=== PATIENT | female | born 1995 | race Caucasian/White ===

== ENCOUNTER 2020-02-18 11:00 | Inpatient (IN) | payer OTHER ==
[2020-02-18 12:25] LABS: BASO % 0.4 % (0-2.0); EOS % 1.5 % (0-4.5); HEMATOCRIT 35.2 % (32.4-45.2); HEMOGLOBIN 11.4 GM/dL (10.7-15.3); LYMPH % 43.7 % (8-40); MCH 27.5 pg (25.7-33.7); MCHC 32.3 g/dl (32.0-36.0); MEAN CELL VOLUME 85.2 fl (80-96); MEAN PLT VOLUME 10.5 fl (7.5-11.1); MONO % 6.6 % (3.8-10.2); NEUT % 47.8 % (42.8-82.8); PLATELET COUNT 185 K/MM3 (134-434); RBC 4.13 M/mm3 (3.60-5.2); RDW 15.7 % (11.6-15.6); WHITE BLOOD COUNT 6.7 K/mm3 (4.0-10.0)
[2020-02-18 12:30] LABS: INR 0.87 (0.83-1.09); PROTHROMBIN TIME (PATIENT) 10.3 SEC (9.7-13.0)
[2020-02-18 12:33] LABS: ACTIVATED PTT 28.4 SECONDS (25.2-36.5)
[2020-02-18 12:35] VITALS: BMI 28.7
[2020-02-18 12:38] LABS: BLOOD UREA NITROGEN 5.6 mg/dL (7-18); CALCIUM 7.8 mg/dL (8.5-10.1); CREATININE 0.6 mg/dL (0.55-1.3); POTASSIUM 4.1 mmol/L (3.5-5.1)
[2020-02-18] MEDS ORDERED: DINOPROSTONE 10 MG VAGINAL SUPPOSITORY VG ONE (12:48)
[2020-02-18] MEDS ORDERED: PROMETHAZINE HCL 25 MG/1 ML VIAL IVPB ONE (12:49)
[2020-02-18] MEDS ORDERED: BUTORPHANOL TARTRATE 1 MG/ML VIAL IVPUSH PRN (12:49)
--- NOTE | 2020-02-18 12:55 | HP ---
Past Medical History - Primary Care Physician PCP:: Zackery Dumont - Admission Chief Complaint: 38 weeks, IUGR History of Present Illness: 25 yo f 38weeks by sono referred by MFWilfredo Hare for induction of labor due to SGA, no interval growth , no pain , no vaginal bleeding txed for UTI, had posiitve afp for Downs, negative NIPT , History Source: Patient Limitations to Obtaining History: Language Barrier - Past Medical History ...: 1 ...Para: 0 ...LMP: 05/15/19 ... Weeks Gestation by Dates: 39.5 ...EDC by Dates: 02/20/20 ...EDC by Sono: 02/28/20 - Past Surgical History Past Surgical History: Yes: None Hx Myomectomy: No Hx Transabdominal Cerclage: No - Smoking History Smoking history: Never smoked Have you smoked in the past 12 months: No - Alcohol/Substance Use Hx Alcohol Use: No - Social History History of Recent Travel: No Home Medications - Allergies Allergies/Adverse Reactions: Allergies Allergy/AdvReac Type Severity Reaction Status Date / Time No Known Allergies Allergy Verified 02/18/20 12:11 - Home Medications Home Medications: Ambulatory Orders Nitrofurantoin Monohyd/M-Cryst [Macrobid -] 100 mg PO BID #14 capsule 01/15/20 Vit 93/Iron Fum/Folic [ Formula Tablet] 1 tab PO DAILY 02/18/20 Review of Systems - Review of Systems Constitutional: reports: No Symptoms Eyes: reports: No Symptoms HENT: reports: No Symptoms Neck: reports: No Symptoms Cardiovascular: reports: No Symptoms Respiratory: reports: No Symptoms Gastrointestinal: reports: No Symptoms Genitourinary: reports: No Symptoms Breasts: reports: No Symptoms Reported Musculoskeletal: reports: No Symptoms Integumentary: reports: No Symptoms Neurological: reports: No Symptoms Endocrine: reports: No Symptoms Hematology/Lymphatic: reports: No Symptoms Psychiatric: reports: No Symptoms Physical Exam - Maternity Vital Signs: Vital Signs Temperature 97.9 F 02/18/20 11:10 Pulse Rate 64 02/18/20 12:00 Respiratory Rate 18 02/18/20 12:00 Blood Pressure 123/86 02/18/20 12:00 O2 Sat by Pulse Oximetry (%) Constitutional: Yes: Well Nourished, No Distress, Calm Eyes: Yes: WNL, Conjunctiva Clear, EOM Intact HENT: Yes: WNL, Atraumatic, Normocephalic Neck: Yes: WNL, Supple, Trachea Midline Cardiovascular: Yes: WNL, Regular Rate and Rhythm Breast(s): Yes: WNL - Abdominal Exam/OB Fundal Height: 36 Number of Fetuses: Single Presentation: Vertex Contractions: No Intensity: Unaware Monitor Mode: External Heart Rate Location: [facility] Category: I Accelerations: Non-Uniform Decelerations: None - Vaginal Exam/OB Vaginal Bleeding: No Speculum Exam: No Dilatation (cm): closed Effacement (%): 0 Amniotic Membrane Status: Intact Presentation: Vertex/Position Station: -4 - Physical Exam Musculoskeletal: Yes: WNL Extremities: Yes: WNL Edema: Yes Edema: LLE: Trace, RLE: Trace Deep Tendon Reflex Grade: Normal +2 Psychiatric: Yes: WNL - Labs Lab Results: CBC, BMP 02/18/20 11:25 02/18/20 11:25 Hemorrhage Risk Assessment - Risk Factors Medium Risk Factors: Yes: None High Risk Factors: Yes: None Risk Score: 1 Risk Level: Medium Risk Problem List - Problems (1) with 38 completed weeks gestation Code(s): Z3A.38 - 38 WEEKS GESTATION OF (2) IUGR (intrauterine growth restriction) affecting care of mother Code(s): O36.5990 - MATERN CARE FOR OTH OR SUSP POOR FETL GRTH, UNSP TRI, UNSP Qualifiers: Fetus number: single or unspecified fetus Trimester: third trimester Qualified Code(s): O36.5930 - Maternal care for other known or suspected poor growth, third trimester, not applicable or unspecified Assessment/Plan admit for cervidil induction FHM revaluate
--- NOTE | 2020-02-18 12:57 | PN ---
Progress Note (short form) - Note Progress Note: cervidil inserted at 12 pm . fhr cat 1, no contraction,cx CLP Problem List - Problems (1) with 38 completed weeks gestation Code(s): Z3A.38 - 38 WEEKS GESTATION OF (2) IUGR (intrauterine growth restriction) affecting care of mother Code(s): O36.5990 - MATERN CARE FOR OTH OR SUSP POOR FETL GRTH, UNSP TRI, UNSP Qualifiers: Fetus number: single or unspecified fetus Trimester: third trimester Qualified Code(s): O36.5930 - Maternal care for other known or suspected poor growth, third trimester, not applicable or unspecified
[2020-02-18 17:33] LABS: URIC ACID 7.4 mg/dL (2.6-7.2)
[2020-02-18 18:08] LABS: RETICULOCYTES 1.89 % (0.5-1.5)
[2020-02-18] MEDS: NITROFURANTOIN MACROCRYSTAL 50 MG CAPSULE (FP) PO SCH (20:01)
[2020-02-18 20:10] LABS: EPI CELLS 9 /uL (0-25.1); HYALINE CASTS 0 /uL (0-3.1); URINE APPEARANCE CLEAR; URINE BACTERIA 18 /uL (0-1359); URINE BILIRUBIN NEGATIVE (NEGATIVE); URINE COLOR YELLOW; URINE GLUCOSE (UA) NEGATIVE (NEGATIVE); URINE KETONE NEGATIVE (NEGATIVE); URINE LEUK ESTERASE TRACE (NEGATIVE); URINE NITRITE NEGATIVE (NEGATIVE); URINE PROTEIN 2+ (NEGATIVE); URINE RBC 6 /uL (0-23.9); URINE UROBILINOGEN 0.2 mg/dL (0.2-1.0); URINE WBC 31 /uL (0-25.8)
[2020-02-18] MEDS ORDERED: DEXTROSE 5%-LACTATED RINGERS 1,000 ML IV ONE (21:20)
--- NOTE | 2020-02-18 21:57 | PN ---
Ante-Partal Exam - Subjective Subjective: Pt with variables with cervidil Vital Signs: Vital Signs Temperature 98.1 F 02/18/20 20:00 Pulse Rate 81 02/18/20 21:00 Respiratory Rate 18 02/18/20 21:00 Blood Pressure 148/96 02/18/20 21:00 O2 Sat by Pulse Oximetry (%) - Contractions Contractions: Yes Monitor Mode: External - Exam during Labor Variability: Moderate Category: II Exam: Vaginal Dilatation (cm): 3 cm Amniotic Membrane Status: Intact Presentation: Vertex - Assessment/Plan Assessment/Plan: Cat 2 varible decels with moderate variability IUGR Plan DC cervidil O2 IVhydration reevaluate cervix after hydration
[2020-02-18] MEDS ORDERED: CITRIC ACID/SODIUM CITRATE 30 ML UNIT-DOSE CUP PO ONE (22:43)
[2020-02-18] MEDS: DEXTROSE 5%-LACTATED RINGERS 1,000 ML IV SCH (23:00)
[2020-02-18] MEDS ORDERED: ONDANSETRON 4 MG/2 ML VIAL IVPUSH PRN (23:09)
[2020-02-18] MEDS ORDERED: morphine SULFATE/PF 0.5 MG/ML (2cc Syringe - QUVA) ONE (23:15)
[2020-02-18] MEDS ORDERED: ceFAZolin SODIUM 1 GM VIAL ONE (23:23)
[2020-02-18] MEDS ORDERED: KETOROLAC TROMETHAMINE 30 MG/1 ML VIAL ONE (23:23)
[2020-02-18] MEDS ORDERED: DEXAMETHASONE SOD PHOSPHATE 4 MG/1 ML VIAL ONE (23:23)
[2020-02-19] MEDS: NITROFURANTOIN MACROCRYSTAL 50 MG CAPSULE (FP) PO SCH
[2020-02-19] MEDS ORDERED: METHYLERGONOVINE MALEATE 0.2 MG/1 ML AMP IM PRN (00:13)
[2020-02-19] MEDS ORDERED: diphenhydrAMINE HCL 25 MG CAPSULE (FP) PO PRN (00:13)
[2020-02-19] MEDS ORDERED: BENZOCAINE 20% 57 GM BOTTLE TP PRN (00:13)
[2020-02-19] MEDS ORDERED: WITCH HAZEL 50% (TUCKS) 40 PAD/JAR PAD TP PRN (00:13)
[2020-02-19] MEDS ORDERED: BENZOCAINE 28 GM HEMORRHOIDAL OINTMENT PR PRN (00:13)
[2020-02-19] MEDS ORDERED: IBUPROFEN 800 MG/8 ML IJ IVPB PRN (00:13)
[2020-02-19] MEDS ORDERED: oxyCODONE HCL 5 MG TABLET PO PRN (00:13)
[2020-02-19] MEDS ORDERED: DEXTROSE 5%-LACTATED RINGERS 1,000 ML IV SCH (00:15)
[2020-02-19] MEDS ORDERED: OXYTOCIN 20 UNITS in 0.9% NS 20 UNIT/1,000 ML INFUS.BAG IV SCH (00:15)
[2020-02-19] MEDS ORDERED: OXYTOCIN 20 UNITS in 0.9% NS 20 UNIT/1,000 ML INFUS.BAG IV ONE (00:35)
[2020-02-19 00:54] LABS: CORD BASE EXCESS -4.8 mmol/L (0-2); CORD HCO3 23.6 mmHg (20-29); CORD PCO2 56.4 mmHg (30-78); CORD pH 7.24 (7.14-7.44)
[2020-02-19 01:02] LABS: CORD HCO3 20.9 mmHg (20-29); CORD PCO2 52.2 mmHg (30-78); CORD pH 7.221 (7.14-7.44)
[2020-02-19] MEDS ORDERED: LABETALOL HCL 200 MG TABLET (FP) PO PRN (01:52)
[2020-02-19] MEDS ORDERED: CEFAZOLIN 1 GM/D5W 1 GM/50 ML BAG ONE (02:00)
[2020-02-19] MEDS: CEFAZOLIN 1 GM/D5W 1 GM/50 ML BAG IVPB SCH ×2 (02:10→10:17)
--- NOTE | 2020-02-19 06:35 | PN ---
Post Progress Note - Subjective Subjective: c/o pain scale 2/10 not oob richardson in situ pt breast feeding Post Day: 1 Type of Delivery: Primary C/S Vital Signs: Vital Signs Temperature 98.7 F 02/19/20 06:00 Pulse Rate 72 02/19/20 06:00 Respiratory Rate 18 02/19/20 06:00 Blood Pressure 120/66 02/19/20 06:00 O2 Sat by Pulse Oximetry (%) 98 02/19/20 01:15 Breast Exam: Yes: Soft, Other. No: Engorged Uterus: Yes: Fundus Firm, Fundus below umbilicus, Non-tender Incision: Yes: Dressing dry and intact. No: Redness, Oozing Abdomen/GI: Yes: Abdomen soft (bs active ), Tolerating PO (po ice chips now ). No: Abdominal Distention, Tender, Passing flatus Lochia: Yes: Rubra Lochia, amount: Moderate Extremities: Yes: Calves non-tender (scd in situ) Perineum: Yes: Intact Activity: Other (not oob yet ) - Labs Labs: CBC WBC 6.7 K/mm3 (4.0-10.0) 02/18/20 11:25 RBC 4.13 M/mm3 (3.60-5.2) 02/18/20 11:25 Hgb 11.4 GM/dL (10.7-15.3) 02/18/20 11:25 Hct 35.2 % (32.4-45.2) 02/18/20 11:25 MCV 85.2 fl (80-96) 02/18/20 11:25 MCH 27.5 pg (25.7-33.7) 02/18/20 11:25 MCHC 32.3 g/dl (32.0-36.0) 02/18/20 11:25 RDW 15.7 % (11.6-15.6) H 02/18/20 11:25 Plt Count 185 K/MM3 (134-434) 02/18/20 11:25 MPV 10.5 fl (7.5-11.1) 02/18/20 11:25 Absolute Neuts (auto) 3.2 K/mm3 (1.5-8.0) 02/18/20 11:25 Neutrophils % 47.8 % (42.8-82.8) 02/18/20 11:25 Lymphocytes % 43.7 % (8-40) H 02/18/20 11:25 Monocytes % 6.6 % (3.8-10.2) 02/18/20 11:25 Eosinophils % 1.5 % (0-4.5) 02/18/20 11:25 Basophils % 0.4 % (0-2.0) 02/18/20 11:25 Nucleated RBC % 0 % (0-0) 02/18/20 11:25 Retic Count 1.89 % (0.5-1.5) H 02/18/20 11:25 Other Findings, Remarks: RS -CTA . i/o 533/200
--- NOTE | 2020-02-19 07:24 | PN ---
Progress Note (short form) - Note Progress Note: 02/18/20 1115 pm cx 4 cm 80 vx -2,fhr cat 2 with deep variable and early decel with each contraction , advised c/s, risks explained Problem List - Problems (1) with 38 completed weeks gestation Code(s): Z3A.38 - 38 WEEKS GESTATION OF (2) IUGR (intrauterine growth restriction) affecting care of mother Code(s): O36.5990 - MATERN CARE FOR OTH OR SUSP POOR FETL GRTH, UNSP TRI, UNSP Qualifiers: Fetus number: single or unspecified fetus Trimester: third trimester Qualified Code(s): O36.5930 - Maternal care for other known or suspected poor growth, third trimester, not applicable or unspecified
--- NOTE | 2020-02-19 07:27 | OP ---
Operative Note - Note: Operative Date: 02/18/20 Pre-Operative Diagnosis: 39 weeks, IUGR, cervidil induction, in labor persistant cat 2 tracing Operation: primary LST c/s Findings: live baby boy, 9/9, OP cord around neck once, clear fluid Surgeon: Zackery Dumont Control Systems Specialist: Carol Lowe Anesthesia: Spinal Specimens Removed: placenta Estimated Blood Loss (mls): 500 Blood Volume Replaced (mls): 0 Operative Report Dictated: Yes
[2020-02-19] MEDS: ENOXAPARIN NA (PORCINE) 40 MG/0.4 ML DISP.SYRIN SQ SCH (10:20)
--- NOTE | 2020-02-19 14:13 | PN ---
Progress Note, Physician Chief Complaint: s/p c section under spinal anesthesia History of Present Illness: post op day one, duramorph for post op pain control - Current Medication List Current Medications: Active Medications Acetaminophen (Tylenol -) 650 mg PO Q4H PRN PRN Reason: PAIN LEVEL 6-10 Benzocaine (Americaine 20% [place] -) 1 spray TP PRN PRN PRN Reason: Pain - Topical Benzocaine (Americaine Ointment -) 1 applic VA PRN PRN PRN Reason: Pain - Topical Bisacodyl (Dulcolax Suppository -) 10 mg VA PRN PRN PRN Reason: CONSTIPATION Diphenhydramine HCl (Benadryl Injection -) 25 mg IVPUSH Q4H PRN PRN Reason: Pruritis Diphenhydramine HCl (Benadryl -) 25 mg PO Q8H PRN PRN Reason: FOR ITCHING Enoxaparin Sodium (Lovenox -) 40 mg SQ DAILY [facility] Last Admin: 02/19/20 10:20 Dose: 40 mg Documented by: Dextrose/Lactated Ringer's (D5-Lr -) 1,000 mls @ 125 mls/hr IV ASDIR [facility] Last Admin: 02/18/20 23:00 Dose: Not Given Documented by: Dextrose/Lactated Ringer's (D5-Lr -) 1,000 mls @ 125 mls/hr IV ASDIR [facility] Last Admin: 02/19/20 00:00 Dose: 125 mls/hr Documented by: Ibuprofen (Motrin -) 600 mg PO Q4H PRN PRN Reason: PAIN LEVEL 1 - 3 Ibuprofen (Caldolor Injection -) 800 mg IVPB Q6H PRN PRN Reason: PAIN > 5 if PO not effective. Labetalol HCl (Normodyne -) 200 mg PO Q8H PRN PRN Reason: IF DBP > 150 OR SBP > 90 Methylergonovine Maleate (Methergine Injection -) 0.2 mg IM Q4H PRN PRN Reason: EXCESSIVE BLEEDING Ondansetron HCl (Zofran Injection) 4 mg IVPUSH Q4H PRN PRN Reason: NAUSEA Oxycodone HCl (Roxicodone -) 5 mg PO Q4H PRN PRN Reason: PAIN LEVEL 4 - 6 Oxycodone HCl (Roxicodone -) 10 mg PO Q4H PRN PRN Reason: PAIN LEVEL 7 - 10 Senna/Docusate Sodium (Pericolace -) 2 tablet PO HS PRN PRN Reason: CONSTIPATION Simethicone (Mylicon -) 80 mg PO Q4H PRN PRN Reason: GAS Witch Melany/Glycerin (Tucks Pads -) 1 pad TP PRN PRN PRN Reason: Pain - Topical - Objective Vital Signs: Vital Signs Temperature 97.4 F L 02/19/20 14:00 Pulse Rate 83 02/19/20 14:00 Respiratory Rate 18 02/19/20 14:00 Blood Pressure 127/81 02/19/20 14:00 O2 Sat by Pulse Oximetry (%) 96 02/19/20 14:00 Constitutional: Yes: Well Nourished Cardiovascular: Yes: WNL Respiratory: Yes: WNL Gastrointestinal: Yes: WNL Labs: CBC, BMP 02/18/20 11:25 02/18/20 11:25 INR, PTT INR 0.87 (0.83-1.09) 02/18/20 11:25 Assessment/Plan pain controlled, no adverse effects of anesthetic, dept of anesthesiology will sign off care at this time.
--- NOTE | 2020-02-19 16:10 | OP ---
DATE OF OPERATION: 02/18/2020 PREOPERATIVE DIAGNOSIS: at 39 weeks, intrauterine growth restriction, Cervidil induction, labor, nonreassuring heart rate, category 2 tracing. POSTOPERATIVE DIAGNOSIS: at 39 weeks, intrauterine growth restriction, Cervidil induction, labor, nonreassuring heart rate, category 2 tracing. PROCEDURE: Primary low segment section. SURGEON: Marika Terry MD INTELLIGENCE OFFICER: Carol Lowe MD ANESTHESIA: Spinal. ANESTHESIOLOGIST: ISA De Leon ESTIMATED BLOOD LOSS: 500 mL. FINDINGS: Live baby boy, 9, 9. Occiput posterior position with cord around the neck once. Clear amniotic fluid. DESCRIPTION OF PROCEDURE: Patient was taken to the operating room, had adequate spinal anesthesia. Abdomen and perineum were prepped and draped. Pfannenstiel abdominal skin incision was made. Abdominal wall was cut layer by layer until peritoneum was exposed and incised. Upon entering the abdominal cavity, lower uterine segment was identified and uterovesical fold of peritoneum established, and bladder was pushed down. Then with the lower blade of the [place] retractor in the pelvis, a low transverse uterine incision was made. Incision extended laterally with bandage scissors. Amniotic sac was entered, clear fluid. Head was in direct occiput posterior position. There was a tight nuchal cord which was reduced. Head delivered, anterior and posterior shoulders delivered without any difficulty. Live baby boy was delivered, attended by campus director, Dr. Trivedi, 9, 9. Placenta was delivered manually. Uterine cavity was cleaned of all remaining tissue. Uterine incision was closed in 2 layers, first layer with 0 Biosyn continuous suture, the second layer with 0 Biosyn imbricating the first layer. Bladder flap was closed with 0 Biosyn continuous suture. Both tubes and ovaries were checked, were normal. No active bleeding was seen. All the lap pad, sponge, and instrument counts were correct. The pelvic cavity was several times irrigated, then peritoneum was closed with 0 Biosyn continuous suture. Muscles were brought together with interrupted suture of 0 Biosyn. Fascia was closed with 0 Biosyn continuous suture, subcutaneous fat interrupted suture of 0 Biosyn, and the skin was closed with 3-0 Vicryl subcuticular continuous suture. Patient tolerated the procedure well, left the OR in good condition. MARIKA TERRY M.D. [id number]
[2020-02-19] MEDS: IBUPROFEN 600 MG TABLET (FP) PO PRN (22:18)
[2020-02-19] MEDS: ACETAMINOPHEN 325 MG TABLET (FP) PO PRN (22:18)
[2020-02-19] MEDS: SIMETHICONE 80 MG TAB.CHEW (FP) PO PRN (22:19)
[2020-02-19] MEDS: oxyCODONE HCL 5 MG TABLET PO PRN (22:19)
[2020-02-20] MEDS: DEXTROSE 5%-LACTATED RINGERS 1,000 ML IV SCH (00:09)
[2020-02-20] MEDS ORDERED: BISACODYL 10 MG SUPP.RECT PR PRN (00:13)
[2020-02-20] MEDS: oxyCODONE HCL 5 MG TABLET PO PRN (06:02)
[2020-02-20] MEDS: SIMETHICONE 80 MG TAB.CHEW (FP) PO PRN ×3 (06:03→21:52)
[2020-02-20] MEDS: ACETAMINOPHEN 325 MG TABLET (FP) PO PRN ×3 (06:03→21:50)
--- NOTE | 2020-02-20 07:15 | PN ---
Post Progress Note - Subjective Subjective: Patient is feeling well, ambulating, tolerating PO, lochia decresed, voiding, pain controlled. Type of Delivery: Primary C/S Vital Signs: Vital Signs Temperature 98.6 F 02/19/20 22:00 Pulse Rate 74 02/20/20 06:00 Respiratory Rate 18 02/20/20 06:00 Blood Pressure 131/96 02/20/20 06:00 O2 Sat by Pulse Oximetry (%) 96 02/19/20 14:00 Breast Exam: Yes: Other Uterus: Yes: Fundus Firm Incision: Yes: Dressing dry and intact (removed), Sutures intact Abdomen/GI: Yes: Abdomen soft Lochia, amount: Moderate Extremities: Yes: Calves non-tender Perineum: Yes: Intact Activity: Ambulating - Labs Labs: CBC WBC 6.7 K/mm3 (4.0-10.0) 02/18/20 11:25 RBC 4.13 M/mm3 (3.60-5.2) 02/18/20 11:25 Hgb 11.4 GM/dL (10.7-15.3) 02/18/20 11:25 Hct 35.2 % (32.4-45.2) 02/18/20 11:25 MCV 85.2 fl (80-96) 02/18/20 11:25 MCH 27.5 pg (25.7-33.7) 02/18/20 11:25 MCHC 32.3 g/dl (32.0-36.0) 02/18/20 11:25 RDW 15.7 % (11.6-15.6) H 02/18/20 11:25 Plt Count 185 K/MM3 (134-434) 02/18/20 11:25 MPV 10.5 fl (7.5-11.1) 02/18/20 11:25 Absolute Neuts (auto) 3.2 K/mm3 (1.5-8.0) 02/18/20 11:25 Neutrophils % 47.8 % (42.8-82.8) 02/18/20 11:25 Lymphocytes % 43.7 % (8-40) H 02/18/20 11:25 Monocytes % 6.6 % (3.8-10.2) 02/18/20 11:25 Eosinophils % 1.5 % (0-4.5) 02/18/20 11:25 Basophils % 0.4 % (0-2.0) 02/18/20 11:25 Nucleated RBC % 0 % (0-0) 02/18/20 11:25 Retic Count 1.89 % (0.5-1.5) H 02/18/20 11:25 Haptoglobin Cancelled 02/18/20 18:30 Assessment/Plan 25 y/o on POD # 2 S/P PLTCS < 36 hrs post-op, in stable condition, labile BP in the normal to mild range, asymptomatic. PEC without severe features and PO antihypertensive adjusted. -F/U AM Labs -Continue labetalol -Consider D/C home on POD # 3 vs 4 -Follow up within a week of discharge for BP and incision check
[2020-02-20 08:31] LABS: BASO % 0.2 % (0-2.0); EOS % 0.4 % (0-4.5); HEMATOCRIT 35.7 % (32.4-45.2); HEMOGLOBIN 11.4 GM/dL (10.7-15.3); LYMPH % 27.1 % (8-40); MCH 27.4 pg (25.7-33.7); MCHC 31.8 g/dl (32.0-36.0); MEAN CELL VOLUME 85.9 fl (80-96); MEAN PLT VOLUME 10.1 fl (7.5-11.1); MONO % 4.9 % (3.8-10.2); NEUT % 67.4 % (42.8-82.8); PLATELET COUNT 183 K/MM3 (134-434); RBC 4.15 M/mm3 (3.60-5.2); RDW 16.3 % (11.6-15.6); WHITE BLOOD COUNT 11.4 K/mm3 (4.0-10.0)
[2020-02-20 08:57] LABS: BLOOD UREA NITROGEN 7.5 mg/dL (7-18); CALCIUM 8.2 mg/dL (8.5-10.1); POTASSIUM 3.8 mmol/L (3.5-5.1)
[2020-02-20 09:00] LABS: BILIRUBIN,TOTAL 0.2 mg/dL (0.2-1); CREATININE 0.7 mg/dL (0.55-1.3); TOT PROT 5.6 g/dl (6.4-8.2)
[2020-02-20] MEDS: LABETALOL HCL 200 MG TABLET (FP) PO SCH ×2 (10:40→21:48)
[2020-02-20] MEDS: ENOXAPARIN NA (PORCINE) 40 MG/0.4 ML DISP.SYRIN SQ SCH (11:41)
[2020-02-20] MEDS: IBUPROFEN 600 MG TABLET (FP) PO PRN ×2 (17:32→21:49)
--- NOTE | 2020-02-21 07:24 | DS ---
Physical Exam-ACETYLENE TORCH OPERATOR Vital Signs: Vital Signs Temperature 98.5 F 02/20/20 22:00 Pulse Rate 76 02/21/20 06:00 Respiratory Rate 18 02/21/20 06:00 Blood Pressure 133/88 02/21/20 06:00 O2 Sat by Pulse Oximetry (%) 96 02/19/20 14:00 Constitutional: Yes: Well Nourished, No Distress, Calm Eyes: Yes: WNL, Conjunctiva Clear, EOM Intact HENT: Yes: WNL, Atraumatic, Normocephalic Neck: Yes: WNL, Supple, Trachea Midline Cardiovascular: Yes: WNL, Regular Rate and Rhythm Respiratory: Yes: WNL, Regular, CTA Bilaterally Gastrointestinal: Yes: WNL ...Rectal Exam: Yes: WNL Renal/: Yes: WNL ....Post : Yes: Uterus firm, Uterus non-tender, Slight lochia rubra Breast(s): Yes: WNL Musculoskeletal: Yes: WNL Extremities: Yes: WNL Edema: Yes Edema: LLE: Trace, RLE: Trace Integumentary: Yes: WNL Wound/Incision: Yes: Clean/Dry, Well Approximated, Sutures Intact Neurological: Yes: WNL, Alert, Oriented ...Motor Strength: WNL Psychiatric: Yes: WNL, Alert, Oriented Labs: CBC, BMP 02/20/20 07:55 02/20/20 07:55 Delivery - Delivery Section: Primary Type of Anesthesia: Spinal Episiotomy/Laceration: None EBL (cc): 500 Delivery, Single - Stages of Labor Date 1st Stage Initiatied: 02/18/20 Time 1st Stage Initiated: 20:00 Date of Delivery: 02/18/20 Time of Delivery: 23:40 Time Placenta Delivered: 23:41 Placenta: Yes: Expressed - Condition of Inspector Wire Rope/Casting Coordinator Present: Yes Name: Fatoumata Trivedi Gender: Female Weight: 5 lb 5 oz Position: OP Total Hours ROM (Hrs/Mins): 0H2M - 1 Minute Total Score: 9 5 Minutes Total Score: 9 - Feeding Plan Initial Plan: Exclusive throughout hospitalization Discharge Summary Problems reviewed: Yes Reason For Visit: INDUCTION OF LAOR Current Active Problems IUGR (intrauterine growth restriction) affecting care of mother (Acute) with 38 completed weeks gestation (Acute) Procedures: Principal: primary lst c/s Hospital Course: HTN, txed with labetalol Health Concerns: HTN Plan of Treatment: follow up [facility] care 1 week Condition: Good - Instructions Diet, Activity, Other Instructions: regular diet, no intercourse, follow up [facility] 1 week, if fever, pain,heavy vaginal bleeding, headache , dizziness call md Referrals: Zackery Dumont MD [Staff Physician] - - Home Medications Comprehensive Discharge Medication List: Ambulatory Orders Nitrofurantoin Monohyd/M-Cryst [Macrobid -] 100 mg PO BID #14 capsule 01/15/20 Vit 93/Iron Fum/Folic [ Formula Tablet] 1 tab PO DAILY 02/18/20 Acetaminophen [Tylenol] 650 mg PO QID PRN #30 tablet MDD 4 02/21/20 Labetalol HCl [Normodyne -] 200 mg PO BID #60 tablet 02/21/20 Oxycodone HCl [Oxaydo] 5 mg PO TID PRN #20 tablet.orl MDD 4 02/21/20
[2020-02-21] MEDS: oxyCODONE HCL 5 MG TABLET PO PRN (08:56)
[2020-02-21] MEDS: ACETAMINOPHEN 325 MG TABLET (FP) PO PRN (08:56)
[2020-02-21] MEDS: LABETALOL HCL 200 MG TABLET (FP) PO SCH (10:17)
[2020-02-21] MEDS: ENOXAPARIN NA (PORCINE) 40 MG/0.4 ML DISP.SYRIN SQ SCH (10:17)
[2020-02-21 14:57] VITALS: BP 125/80; PULSE 73; TEMP 98.7
--- NOTE | 2020-02-21 17:44 | PATH ---
Surgical Pathology Report Patient Name: LEONIDAS WATSON [facility]. Rec. #: [id number] /Age/Gender: 1995 (Age: 25) / F Account: [id number] Location: [facility] OBS/[place]SA[place] CULTURIST Taken: 02/18/2020 Received: 02/19/2020 Reported: 02/21/2020 Physicians: Zackery Dumont M.D. Specimen(s) Received PLACENTA Clinical History 38.3 weeks gestation, cervical induction for IUGR. for nonreassuring heart rate Final Diagnosis PLACENTA: THIRD TRIMESTER PLACENTA. TRIVASCULAR CORD. MEMBRANES WITH NO DIAGNOSTIC ABNORMALITIES. Electronically Signed Isrrael Pablo M.D. Gross Description The specimen is received fresh labeled placenta and is a 359 gram, 18.5 x15.5 x 1.5cm. placenta with attached membranes and umbilical cord. The attached membranes are glistening, translucent, and insert marginally. The umbilical cord measures 9cm. in length and averages 1.5 cm. in diameter. The cord inserts centrally, 5 centimeter to the nearest margin. No true knots or strictures are identified. Cut surface of the umbilical cord reveals 3 vessels. Sectioning reveals red-brown, spongy parenchyma. No lesions are identified. Copier Operator sections are submitted in three cassettes as follows: 1- membrane rolls and umbilical cord; 2-3- full thickness sections of placenta KWS/02/19/2020 sulki/02/19/2020
[2020-02-21] MEDS ORDERED: SENNOSIDES/DOCUSATE COMBO (SENNA PLUS) TABLET (UD) PO PRN (22:00)
== END 2020-02-21 14:55 | disposition home or self-care (01) | DRG 540 ==
LOC: JLDR 11:00 → J3W 02-19 02:02
PROVIDERS: ADMIT Obstetrics & Gynecology; ATTEND Obstetrics & Gynecology
PROC: 10D00Z1 Extraction of Products of Conception, Low, Open Approach (ICD-10-PCS; principal; 2020-02-18)
PROC: 3E0P7VZ Introduction of Hormone into Female Reproductive, Via Natural or Artificial Opening (ICD-10-PCS; 2020-02-18)
DX: O36.5930 Maternal care for other known or suspected poor fetal growth, third trimester, not applicable or unspecified (principal); O69.81X0 Labor and delivery complicated by cord around neck, without compression, not applicable or unspecified; O76 Abnormality in fetal heart rate and rhythm complicating labor and delivery; Z3A.38 38 weeks gestation of pregnancy; Z37.0 Single live birth
CPT/HCPCS: 36415; 36600; 80048; 80053; 81003; 82803; 82977; 83010; 84450; 84460; 84550; 85025; 85044; 85610; 85730; 86780; 86850; 86900; 86901; 88307-TC; U0003